=== PATIENT | female | born 1940 | race Caucasian/White ===

== ENCOUNTER → 2016-07-28 | Day surgery (SDC) | payer MEDICARE, OTHER ==
[~2016-07-28] VITALS: Ht 162.6 cm; Wt 75.7 kg
[~2016-07-28] MED LIST: /ESOM40CA PO; /WARF25TA OR; BUPIVACAINE HCL 0.25% 30 ML VIAL XX ONE; BUPIVACAINE/EPIN 0.25% 30 ML VIAL As Ordered ONE; BUPIVACAINE/EPIN 0.25% 30 ML VIAL XX ONE; BYST20TA PO; CARD180C4 PO; DIOV320T2 PO; DIOV320T3 PO; ELIQ5TAB PO; GABA-283 PO; GLUC500T PO; GLYCOPYRROLATE INJ 0.2 MG/ML 2 ML VIAL As Ordered ONE; INDE80CA PO; IRON18TA2 PO; LIDOCAINE 2% INJ 100 MG/5 ML SDV (FOR ANES.) As Ordered ONE; LOVE1INJ SC; LR 1,000 ML IV SCH; LevoFLOXacin 500 MG in APPROPRIATE DILUENT 1 EA IV ONE; MAGN400C2 PO; METF500T PO; METOCLOPRAMIDE INJ 10MG/2ML VIAL (J2765) IV PRN; MIDAZOLAM INJ 2 MG/2 ML VIAL (J2250) As Ordered ONE; MORPHINE 10 MG/ML 1ML VIAL As Ordered ONE; MORPHINE 2 MG/ML 1ML SYRINGE IV PRN; NEOSTIGMINE 1MG/ML 5 ML SYRINGE (J2710) As Ordered ONE; NEXI40CA PO; NORCO, ANEXSIA 5/325MG TABLET (HYDROcodone/ACETAMINOPHEN) PO PRN; NORT10CA2 PO; ONDANSETRON 4MG/2ML VIAL (J2405) As Ordered ONE; ONDANSETRON 4MG/2ML VIAL (J2405) IV PRN; PERCOCET 5MG/325MG TAB PO PRN; PERCOCET PO; PHENYLephrine HCL 500 MCG/5 ML (100MCG/ML) SYRINGE (J2370) As Ordered ONE; POTA75TA PO; PROPOFOL 200 MG/20 ML VIAL As Ordered ONE; ROCURONIUM BROMIDE 50 MG/5 ML VIAL As Ordered ONE; fentaNYL 100 MCG/2 ML INJECTION (J3010) As Ordered ONE; potassium OR
--- NOTE | 2016-07-28 08:53 | RO ---
DATE OF PROCEDURE: 07/28/2016 PREOPERATIVE DIAGNOSIS: Symptomatic epigastric hernia. POSTOPERATIVE DIAGNOSIS: Symptomatic epigastric hernia. PROCEDURE: Repair of epigastric hernia with mesh. SURGEON: Dr. Bucky Hilario. AUTOMOTIVE SERVICE PORTER: ANESTHESIA: IV sedation plus local and general anesthesia. ESTIMATED BLOOD LOSS: Minimal. FLUIDS: Crystalloid. DESCRIPTION OF OPERATION: The patient was brought to the operating room and was given general anesthesia. After adequate anesthesia was established, the patient was prepped and draped in the usual sterile fashion. Next an epigastric incision was made with skin knife. Electrocautery was used cut through dermis, underlying subcutaneous tissue down to the hernia sac itself. This was followed all the way to the fascial level itself and then was circumferentially cleared of surrounding tissue. The hernia sac was transected at the level of the fascia and circumferentially this was palpated intraperitoneally and did not reveal any adhesions or masses present. Next a ventral patch was used given that the fascia in this area was significantly attenuated and I felt it would benefit from support from an intraperitoneal mesh. This was placed intraperitoneal the 6 cm mesh and the tails of mesh were sutured superiorly and inferiorly with #0 Ethibond and #0 Ethibond [id number] sutures were used close the incision. #2-0 Vicryl was used to close the subcutaneous tissue, #3-0 Vicryl was used close the dermis, #4-0 Vicryl was used to approximate the skin and Steri-Strips and dry sterile dressing was applied. The patient was awakened, extubated, brought to recovery room awake, alert, hemodynamically stable. Sponge and needle counts correct times two.
[2016-07-28] MEDS: fentaNYL 100 MCG/2 ML INJECTION (J3010) IV PRN ×4 (08:58→09:20)
[2016-07-28] MEDS: MORPHINE 2 MG/ML 1ML SYRINGE IV PRN ×5 (09:29→09:55)
[2016-07-28 14:49] VITALS: BP 145/67
== END | disposition home or self-care (01) ==
LOC: M SDC 06:05
PROVIDERS: ATTEND Surgery
DX: K43.9 Ventral hernia without obstruction or gangrene (principal); E11.21 Type 2 diabetes mellitus with diabetic nephropathy; I10 Essential (primary) hypertension; E78.00 Pure hypercholesterolemia, unspecified; M12.9 Arthropathy, unspecified; M54.9 Dorsalgia, unspecified; M54.2 Cervicalgia; R25.1 Tremor, unspecified; Z95.0 Presence of cardiac pacemaker; I48.91 Unspecified atrial fibrillation; I25.10 Atherosclerotic heart disease of native coronary artery without angina pectoris; I25.2 Old myocardial infarction; K44.9 Diaphragmatic hernia without obstruction or gangrene; K21.9 Gastro-esophageal reflux disease without esophagitis; D64.9 Anemia, unspecified; R29.898 Other symptoms and signs involving the musculoskeletal system; Z88.0 Allergy status to penicillin; Z88.2 Allergy status to sulfonamides; Z88.5 Allergy status to narcotic agent; Z88.8 Allergy status to other drugs, medicaments and biological substances; Z91.048 Other nonmedicinal substance allergy status; Z79.899 Other long term (current) drug therapy; Z98.51 Tubal ligation status; Z86.73 Personal history of transient ischemic attack (TIA), and cerebral infarction without residual deficits; Z90.710 Acquired absence of both cervix and uterus; Z96.1 Presence of intraocular lens
CPT/HCPCS: 49570; 88302; 96374; 96375; 96376; C1781; J1956; J2250; J2370; J2405; J3010

== ENCOUNTER 2017-08-16 12:06 | Day surgery (SDC) | payer MEDICARE, OTHER ==
[2017-08-16] MEDS: LR 1,000 ML IV (12:30)
[2017-08-16 12:46] LABS: BEDSIDE GLUCOSE 127 MG/DL (83-110)
[2017-08-16] MEDS ORDERED: MIDAZOLAM INJ 2 MG/2 ML VIAL (J2250) As Ordered (13:32)
[2017-08-16] MEDS ORDERED: fentaNYL 100 MCG/2 ML INJECTION (J3010) As Ordered (13:32)
[2017-08-16] MEDS ORDERED: ONDANSETRON 4MG/2ML VIAL (J2405) As Ordered (13:32)
[2017-08-16] MEDS ORDERED: METOCLOPRAMIDE INJ 10MG/2ML VIAL (J2765) As Ordered (13:32)
[2017-08-16] MEDS ORDERED: dexameTHASONE 4 MG/ML 1ML VIAL (J1100) As Ordered ×2 (13:33)
[2017-08-16] MEDS: CLINDAMYCIN 600 MG in APPROPRIATE DILUENT 1 EA IV (13:36)
[2017-08-16] MEDS: ROPIvacaine 0.5% 30 ML INJECTION (J2795 PER 1MG) As Ordered (14:09)
[2017-08-16] MEDS ORDERED: DESFLURANE 240 ML INHALANT As Ordered (14:11)
[2017-08-16] MEDS ORDERED: METOCLOPRAMIDE INJ 10MG/2ML VIAL (J2765) IV (14:30)
[2017-08-16] MEDS ORDERED: LR 1,000 ML IV ×2 (14:30)
[2017-08-16] MEDS ORDERED: fentaNYL 100 MCG/2 ML INJECTION (J3010) IV (14:30)
[2017-08-16] MEDS ORDERED: ONDANSETRON 4MG/2ML VIAL (J2405) IV (14:30)
[2017-08-16] MEDS: PERCOCET 5MG/325MG TAB PO (14:40)
[2017-08-16] MEDS ORDERED: NORCO, ANEXSIA 5/325MG TABLET (HYDROcodone/ACETAMINOPHEN) PO (14:45)
== END 2017-08-16 16:45 | disposition home or self-care (01) ==
LOC: M SDC 12:06
DX: M17.11 Unilateral primary osteoarthritis, right knee (principal); M67.51 Plica syndrome, right knee; M23.211 Derangement of anterior horn of medial meniscus due to old tear or injury, right knee; M23.241 Derangement of anterior horn of lateral meniscus due to old tear or injury, right knee; M23.251 Derangement of posterior horn of lateral meniscus due to old tear or injury, right knee; I11.9 Hypertensive heart disease without heart failure; E11.9 Type 2 diabetes mellitus without complications; I48.91 Unspecified atrial fibrillation; I25.10 Atherosclerotic heart disease of native coronary artery without angina pectoris; I25.2 Old myocardial infarction; K44.9 Diaphragmatic hernia without obstruction or gangrene; K21.9 Gastro-esophageal reflux disease without esophagitis; R29.898 Other symptoms and signs involving the musculoskeletal system; M54.9 Dorsalgia, unspecified; Z88.0 Allergy status to penicillin; Z88.1 Allergy status to other antibiotic agents; Z88.2 Allergy status to sulfonamides; Z88.5 Allergy status to narcotic agent; Z88.8 Allergy status to other drugs, medicaments and biological substances; Z91.09 Other allergy status, other than to drugs and biological substances; Z79.899 Other long term (current) drug therapy; Z79.01 Long term (current) use of anticoagulants; Z79.84 Long term (current) use of oral hypoglycemic drugs; Z95.0 Presence of cardiac pacemaker; Z86.73 Personal history of transient ischemic attack (TIA), and cerebral infarction without residual deficits; Z90.710 Acquired absence of both cervix and uterus; Z98.51 Tubal ligation status
CPT/HCPCS: 29880

== ENCOUNTER → 2018-05-17 | Outpatient (CLI) | payer MEDICARE, OTHER ==
[2018-05-17 15:00] LABS: COLLAGEN EPINEPHRINE 92 SECONDS (74-162)
== END ==
LOC: M LAB 13:47
DX: H02.831 Dermatochalasis of right upper eyelid (principal); H02.834 Dermatochalasis of left upper eyelid; H02.423 Myogenic ptosis of bilateral eyelids
CPT/HCPCS: 36415

== ENCOUNTER 2018-05-30 06:09 | Day surgery (SDC) | payer MEDICARE, OTHER ==
[2018-05-30 06:43] LABS: BEDSIDE GLUCOSE 151 MG/DL (83-110)
[2018-05-30 06:59] LABS: ALBUMIN 3.4 GM/DL (3.2-5.2); ALBUMIN/GLOBULIN RATIO 1.03 (1.00-1.93); ALKALINE PHOSPHATASE 93 U/L (45-117); ALT/SGPT 44 U/L (12-78); ANION GAP 7 MEQ/L (8-16); AST/SGOT 28 U/L (7-37); BILIRUBIN,TOTAL 0.5 MG/DL (0.2-1.0); BLOOD UREA NITROGEN 13 MG/DL (7-18); CALCIUM LEVEL 9.1 MG/DL (8.8-10.2); CARBON DIOXIDE LEVEL 27 MEQ/L (21-32); CHLORIDE LEVEL 110 MEQ/L (98-107); GLOMERULAR FILTRATION RATE 57.5 (>39); GLUCOSE, FASTING 143 MG/DL (70-100); POTASSIUM SERUM 4.3 MEQ/L (3.5-5.1); SODIUM LEVEL 144 MEQ/L (136-145); TOTAL PROTEIN 6.7 GM/DL (6.4-8.2)
[2018-05-30] MEDS ORDERED: MIDAZOLAM INJ 2 MG/2 ML VIAL (J2250) As Ordered ×2 (07:10)
[2018-05-30] MEDS ORDERED: fentaNYL 100 MCG/2 ML INJECTION (J3010) As Ordered ×2 (07:10)
[2018-05-30] MEDS ORDERED: LIDOCAINE 2% INJ 100 MG/5 ML SDV (FOR ANES.) As Ordered ×2 (07:16)
[2018-05-30] MEDS ORDERED: dexameTHASONE 4 MG/ML 1ML VIAL (J1100) As Ordered ×4 (07:17→08:14)
[2018-05-30] MEDS ORDERED: ONDANSETRON 4MG/2ML VIAL (J2405) As Ordered ×2 (07:17)
[2018-05-30] MEDS: dexameTHASONE 4 MG/ML 1ML VIAL (J1100) IV ×2 (07:35)
[2018-05-30] MEDS: LIDOCAINE W/EPINEPHRINE 1% 20ML VIAL As Ordered ×2 (07:44)
[2018-05-30] MEDS: BUPIVACAINE 0.75% 10 ML VIAL As Ordered ×2 (07:44)
[2018-05-30] MEDS: HYALURONIDASE 150UNIT/ML 1ML VIAL (AMPHADASE) (J3470) As Ordered ×2 (07:44)
[2018-05-30] MEDS: SODIUM BICARBONATE 8.4% INJ 50MEQ 50 ML VIAL As Ordered ×2 (07:44)
[2018-05-30] MEDS: POVIDONE-IODINE 5% OPHTH PREP SOL 30ML As Ordered ×2 (07:50)
[2018-05-30] MEDS: TETRACAINE 0.5% OPHTH SOLN 4ML As Ordered ×2 (08:05)
[2018-05-30] MEDS: LIDOCAINE 2% W/EPIN INJ 20ML **PRES FREE As Ordered ×2 (08:20)
[2018-05-30] MEDS ORDERED: PROPOFOL 200 MG/20 ML VIAL As Ordered ×4 (08:59)
[2018-05-30] MEDS: TOBRADEX OPHTH OINT 3.5 GM As Ordered ×2 (09:28)
[2018-05-30] MEDS: CIPROFLOXACIN 0.3% OPHTH OINTMENT As Ordered ×2 (09:28)
[2018-05-30] MEDS ORDERED: ONDANSETRON 4MG/2ML VIAL (J2405) IV ×2 (10:00)
== END 2018-05-30 10:26 | disposition home or self-care (01) ==
LOC: M SDC 06:09
DX: H02.423 Myogenic ptosis of bilateral eyelids (principal); H02.831 Dermatochalasis of right upper eyelid; H02.834 Dermatochalasis of left upper eyelid; I48.91 Unspecified atrial fibrillation; I10 Essential (primary) hypertension; K21.9 Gastro-esophageal reflux disease without esophagitis; E11.9 Type 2 diabetes mellitus without complications; Z95.0 Presence of cardiac pacemaker; Z79.899 Other long term (current) drug therapy; Z88.0 Allergy status to penicillin; Z88.2 Allergy status to sulfonamides; Z88.8 Allergy status to other drugs, medicaments and biological substances
CPT/HCPCS: 67904

== ENCOUNTER → 2025-06-19 | Outpatient (CLI) | payer MEDICARE, OTHER ==
[~2025-06-19] MED LIST changes: -/ESOM40CA PO; -/WARF25TA OR; -BUPIVACAINE HCL 0.25% 30 ML VIAL XX ONE; -BUPIVACAINE/EPIN 0.25% 30 ML VIAL As Ordered ONE; -BUPIVACAINE/EPIN 0.25% 30 ML VIAL XX ONE; +COUM1TAB18 OR; +ENOX80IN3; -GABA-283 PO; +GABA-284 PO; -GLYCOPYRROLATE INJ 0.2 MG/ML 2 ML VIAL As Ordered ONE; -INDE80CA PO; +INDE80CA9 PO; +JANU100T PO; -LIDOCAINE 2% INJ 100 MG/5 ML SDV (FOR ANES.) As Ordered ONE; +LOSA-530 PO; -LR 1,000 ML IV SCH; -LevoFLOXacin 500 MG in APPROPRIATE DILUENT 1 EA IV ONE; -METF500T PO; +METF500T13 PO; -METOCLOPRAMIDE INJ 10MG/2ML VIAL (J2765) IV PRN; +MICR8CAP PO; -MIDAZOLAM INJ 2 MG/2 ML VIAL (J2250) As Ordered ONE; -MORPHINE 10 MG/ML 1ML VIAL As Ordered ONE; -MORPHINE 2 MG/ML 1ML SYRINGE IV PRN; -NEOSTIGMINE 1MG/ML 5 ML SYRINGE (J2710) As Ordered ONE; +NEXI1CAP3 PO; -NORCO, ANEXSIA 5/325MG TABLET (HYDROcodone/ACETAMINOPHEN) PO PRN; -ONDANSETRON 4MG/2ML VIAL (J2405) As Ordered ONE; -ONDANSETRON 4MG/2ML VIAL (J2405) IV PRN; +OXYC1TAB23 PO; -PERCOCET 5MG/325MG TAB PO PRN; -PERCOCET PO; -PHENYLephrine HCL 500 MCG/5 ML (100MCG/ML) SYRINGE (J2370) As Ordered ONE; -PROPOFOL 200 MG/20 ML VIAL As Ordered ONE; +PROTPAK PO; -ROCURONIUM BROMIDE 50 MG/5 ML VIAL As Ordered ONE; -fentaNYL 100 MCG/2 ML INJECTION (J3010) As Ordered ONE
== END ==
LOC: M PLALAB 09:58
PROVIDERS: ATTEND Surgery
DX: Z80.3 Family history of malignant neoplasm of breast (principal); Z85.3 Personal history of malignant neoplasm of breast